=== PATIENT | male | born 1945 | race Caucasian/White ===

== ENCOUNTER 2020-09-02 14:37 | Emergency (ER) | payer MEDICARE, BC, OTHER ==
[2020-09-02 15:55] LABS: HEMOGLOBIN 15.6 gm/dl (14.0-17.5); RED BLOOD COUNT 4.96 M/UL (4.20-5.50); WHITE BLOOD COUNT 8.7 K/UL (4.5-11.0)
[2020-09-02] MEDS ORDERED: FLOMAX0.4 MG PO (16:41)
[2020-09-02] MEDS ORDERED: TORADOL 10 MG T10 MG PO (16:41)
[2020-09-02] MEDS ORDERED: ZOFRAN4 MG PO (16:41)
== END 2020-09-02 16:53 | disposition home or self-care (01) ==
LOC: ER1 14:37
PROVIDERS: Internal Medicine
DX: N13.2 Hydronephrosis with renal and ureteral calculous obstruction (principal); E78.5 Hyperlipidemia, unspecified; Z87.442 Personal history of urinary calculi
CPT/HCPCS: 80053; 81001; 85025; 96374; 96375; 99284; J1885; J2405